=== PATIENT | female | born 1975 | race Caucasian/White ===

== ENCOUNTER 2016-08-25 23:13 | Inpatient (IN) | payer MEDICARE, MEDICAID, OTHER ==
[~2016-08-25] VITALS: Ht 170.2 cm; Wt 103.8 kg
[2016-08-25 23:21] VITALS: TEMP 97.7
[2016-08-25 23:31] VITALS: PULSE 91; RESP 18; O2SAT 97
[2016-08-25] MEDS ORDERED: DEPO104I SQ (23:39)
[2016-08-25] MEDS ORDERED: PAXI10TA2 PO (23:39)
[2016-08-25] MEDS: ACTIVATED CHARCOAL LIQUID 25 GM/120 ML BTL PO/NG ONE (23:45)
[2016-08-25] MEDS ORDERED: SODIUM CHLOR 0.9% 1000 ML INJ 1,000 ML IV ONE (23:45)
[2016-08-25 23:58] LABS: AUTOMATED NEUTROPHIL # 7.8 TH/MM3 (1.8-7.7); BASOPHIL # 0.1 TH/MM3 (0-0.2); BASOPHIL % 1.1 % (0.0-2.0); EOSINOPHIL # 0.1 TH/MM3 (0-0.4); EOSINOPHIL % 0.5 % (0.0-4.0); HEMATOCRIT 38.7 % (35.0-46.0); HEMO FLAGS DIFF FINAL; LYMPH % 28.5 % (9.0-44.0); LYMPHOCYTE # 3.6 TH/MM3 (1.0-4.8); MEAN CELL VOLUME 88.1 FL (80.0-100.0); MEAN CORPUSCULAR HEMOGLOBIN 30.6 PG (27.0-34.0); MEAN CORPUSCULAR HGB CONC 34.7 % (32.0-36.0); MONO % 7.6 % (0.0-8.0); NEUT % 62.3 % (16.0-70.0); PLATELET COUNT 262 TH/MM3 (150-450); RED CELL DISTRIBUTION WIDTH 13.1 % (11.6-17.2); WHITE BLOOD COUNT 12.5 TH/MM3 (4.0-11.0)
[2016-08-26] VITALS (8 sets, daily range): BP systolic 126–189; BP diastolic 75–101; PULSE 82–101; RESP 16–20; TEMP 98.4; O2SAT 93–99
[2016-08-26 00:14] LABS: ALT (GPT) 18 U/L (10-53); ANION GAP 13 MEQ/L (5-15); AST (GOT) 21 U/L (15-37); BICARBONATE 21.9 MEQ/L (21.0-32.0); BLOOD UREA NITROGEN 7 MG/DL (7-18); CHLORIDE 107 MEQ/L (98-107); GLOMERULAR FILTRATION RATE 73 ML/MIN (>89); POTASSIUM 3.2 MEQ/L (3.5-5.1); SODIUM (NA) 142 MEQ/L (136-145)
[2016-08-26 00:15] LABS: ALKALINE PHOSPHATASE 82 U/L (45-117); TOTAL BILIRUBIN ADULT 0.5 MG/DL (0.2-1.0)
[2016-08-26 00:18] LABS: ACETAMINOPHEN LESS THAN 2.0 MCG/ML (10.0-30.0)
[2016-08-26 00:31] LABS: AMPHETAMINE, URINE NEG (NEG); BARBITURATES, URINE NEG (NEG); COCAINE, URINE NEG (NEG)
[2016-08-26] MEDS ORDERED: POTASSIUM CHLORIDE 20 MEQ CONTROLLED RELEASE TAB PO ONE (01:00)
[2016-08-26] MEDS ORDERED: SODIUM CHLOR 0.9% 1000 ML INJ 1,000 ML IV ONE (01:00)
[2016-08-26] MEDS: ACTIVATED CHARCOAL LIQUID 25 GM/120 ML BTL PO/NG ONE (01:08)
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
[2016-08-26 03:47] LABS: APTT (PATIENT) 25.9 SEC (24.3-30.1); PROTHROMBIN TIME - PATIENT 11.5 SEC (9.8-11.6)
[2016-08-26] MEDS ORDERED: ONDANSETRON HCL 4 MG/2 ML VIAL IV PUSH ONE (07:00)
[2016-08-26 08:16] LABS: BICARBONATE 19.9 MEQ/L (21.0-32.0); POTASSIUM 3.7 MEQ/L (3.5-5.1)
--- NOTE | 2016-08-26 12:27 | EKG ---
Date Performed: 08/25/2016 Time Performed: 23:35:17 PTAGE: 41 years EKG: Sinus rhythm NORMAL ECG NO PREVIOUS TRACING DOCTOR: Rigo Cuevas Interpretating Date/Time 08/26/2016 12:25:16
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
[2016-08-26] MEDS ORDERED: cloNIDine HCL 0.1 MG TAB PO ONE (17:00)
[2016-08-26] MEDS ORDERED: ACETAMINOPHEN 325 MG TAB PO PRN (17:15)
[2016-08-26] MEDS ORDERED: ALUMINUM/MAGNESIUM/SIMETH 30 ML CUP PO PRN (17:15)
[2016-08-26] MEDS ORDERED: MAGNESIUM HYDROXIDE SUSP 30 ML CUP PO PRN (17:15)
[2016-08-27 05:29] VITALS: BP 142/74; PULSE 102; RESP 15; TEMP 98.6; O2SAT 95
[2016-08-27 07:50] LABS: ANION GAP 7 MEQ/L (5-15); BLOOD UREA NITROGEN 13 MG/DL (7-18); CHLORIDE 108 MEQ/L (98-107); GLOMERULAR FILTRATION RATE 45 ML/MIN (>89); HDL CHOLESTEROL 47.5 MG/DL (40.0-60.0); LDL CHOLESTEROL 63 MG/DL (0-99); POTASSIUM 3.8 MEQ/L (3.5-5.1); SODIUM (NA) 140 MEQ/L (136-145)
[2016-08-27] MEDS ORDERED: PARoxetine HCL 20 MG TAB PO SCH (09:00)
[2016-08-27] MEDS ORDERED: INFLUENZA VIRUS VACCINE (QUADRIVALENT) 0.5 ML SYR IM ONE (10:00)
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
[2016-08-27] MEDS: CITALOPRAM HYDROBROMIDE 20 MG TAB PO SCH (11:45)
[2016-08-27 19:15] VITALS: BP 122/69; PULSE 88; RESP 18; TEMP 98; O2SAT 97
[2016-08-27 20:33] LABS: C. DIFF EPI 027 PRESUMPTIVE NEGATIVE (NEGATIVE); C. DIFF TOXIN PCR NEGATIVE (NEGATIVE)
[2016-08-27] MEDS: QUEtiapine FUMARATE 100 MG TAB PO SCH (20:43)
[2016-08-28 05:46] VITALS: BP 122/78; PULSE 92; RESP 18; TEMP 98.1; O2SAT 98
[2016-08-28] MEDS: CITALOPRAM HYDROBROMIDE 20 MG TAB PO SCH (08:48)
--- NOTE | 2016-08-28 09:28 | HHI.PYPN ---
Subjective Remarks Patient was seen for reevaluation today's morning at bedside in her room in the med/psych unit, she was calm, cooperative and pleasant, she explains that she feels much better, her mood has improved,now is 5/10, compared with 2/10 yesterday, she says that the medication definitely help her to sleep better and relax, she says that she understands the importance of following directions , medical recommendations and continuing treatment and psychiatric follow-up as an outpatient. She is also physically better, her diarrhea now has remitted. She denies suicidal or homicidal ideation, she denies visual and auditory hallucination. She is fully oriented 3, no gross cognitive impairment observed. As per nursing staff she has been quite in the unit, compliant with medications, not aggressive behavior or agitation reported. Review of Systems Constitutional: DENIES: Diaphoretic episodes, Fatigue, Fever, Weight gain, Weight loss, Chills, Dizziness, Change in appetite, Night Sweats Endocrine: COMPLAINS OF: Abnorml menstrual pattern, Heat/cold intolerance, Polydipsia, Polyuria, Polyphagia Eyes: DENIES: Blurred vision, Diplopia, Eye inflammation, Eye pain, Vision loss , Photosensitivity, Double Vision Ears, nose, mouth, throat: DENIES: Tinnitus, Hearing loss, Vertigo, Nasal discharge, Oral lesions, Throat pain, Hoarseness, Ear Pain, Running Nose, Epistaxis, Sinus Pain, Toothache, Odynophagia Respiratory: DENIES: Apneas, Cough, Snoring, Wheezing, Hemoptysis, Sputum production, Shortness of breath Gastrointestinal: COMPLAINS OF: Diarrhea Genitourinary: DENIES: Abnormal vaginal bleeding, Dysmenorrhea, Dyspareunia, Sexual dysfunction, Urinary frequency, Urinary incontinence, Urgency, Hematuria , Dysuria, Nocturia, Vaginal discharge Musculoskeletal: DENIES: Joint pain, Muscle aches, Stiffness, Joint Swelling, Back pain, Neck pain Integumentary: DENIES: Abnormal pigmentation, Pruritus, Rash, Nail changes, Breast masses, Breast skin changes, Nipple discharge Hematologic/lymphatic: DENIES: Bruising, Lymphadenopathy Immunologic/allergic: DENIES: Eczema, Urticaria Neurologic: DENIES: Abnormal gait, Headache, Localized weakness, Paresthesias, Seizures, Speech Problems, Tremor, Poor Balance Psychiatric: COMPLAINS OF: Depression Objective Alert: Yes [place]: Person (ox4) Mood: Calm, Depressed Affect: Euthymic, Other Memory Intact: Immediate, Recent, Remote, Comment Hallucinations: Other (negative) Delusions: No Delusion Type: Other (none) Suicidal: Ideation (deneis at present) Homicidal: Ideation (negative) Insight/Judgement good Labs Test 08/27/16 17:05 Stool C. difficile Toxin (PCR) NEGATIVE Stl C. difficile Toxin PRESUMPTIVE Epiderm 027 NEGATIVE Vitals/IOs Vital Signs Date Time Temp Pulse Resp B/P Pulse Ox O2 Delivery O2 Flow Rate FiO2 08/28/16 05:46 98.1 92 18 122/78 98 08/26/16 19:17 Room Air Intake and Output 08/27/16 08/27/16 08/28/16 08:00 16:00 00:00 Intake Total 1060 ml Balance 1060 ml Assessment & Plan Problem List: (1) Adjustment disorder Assessment & Plan: Patient has shows positive response to psychotropics, we'll continue the process of psychiatric hospitalization for stabilization of depression and SI. No psychotropic changes today, television maintenance worker intervention to start to coordinate discharge planning. ICD Code: F43.20 Assessment & Plan Estimated LOS: days Justification for Cont. Inpt. Patient still needs psychiatric stabilization, she most probably decompensate out of the psychiatric unit. Request HC Surrog/Guard Advoc?: No Problem Qualifiers (1) Adjustment disorder: Qualified Code: F43.21 - Adjustment disorder with depressed mood José Smith MD Aug 28, 2016 09:28
--- NOTE | 2016-08-28 10:24 | PD.CONS ---
HPI Service [facility] Consult Requested By Psychiatry team Reason for Consult Medical management Primary Care Physician Mei Leon Diagnoses: History of Present Illness Patient is a 41-year-old female who came in to the hospital under Pascual act secondary to ingestion of more than 20 tablets of Motrin and other medications as a suicidal gesture. Patient admitted to medical psychiatry unit for further evaluation. Consulted for medical management. Patient seen today. States she has primary medical history of depression, colitis, C. difficile, HTN, recurrent UTI. States she doesn't remember all her medications but she no she is taking Toprol twice a day 50 mg dose. Reports [facility] as her regular pharmacy. She states she is feeling better. Denies pain and discomfort. Denies SOB/ dyspnea. Denies chest pain, palpitations, headaches, dizziness. Denies fevers, chills, n/v/d. Review of Systems Other Negative except for what is noted on history of present illness. Past Family Social History Allergies: Coded Allergies: Sulfa (Verified Allergy, Unknown, 08/25/16) Past Medical History Depression C. 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 Reported Medications Depo-SubQ Provera Inj (Medroxyprogesterone Inj) 104 Mg/0.65 Ml Inj 104 Mg SQ Q90D Paxil (Paroxetine HCl) 10 Mg Tab 10 Mg PO DAILY Toprol 50 mg twice a day Losartan/hydrochlorothiazide 50/12.5 mg daily Active Ordered Medications Current Medications Medications (Trade) Dose Ordered Sig/Smitha Route Start Time Stop Time Status Last Admin (Tylenol) 650 mg Q4H PRN PO 08/26/16 17:15 (CeleXA) 20 mg DAILY PO 08/27/16 11:45 08/28/16 08:48 (SEROquel) 100 mg HS PO 08/27/16 21:00 08/27/16 20:43 (Protonix) 40 mg DAILY PO 08/28/16 11:00 08/28/16 12:00 (Zofran Inj) 4 mg Q6H PRN IV 08/28/16 10:30 (Tums Chew) 1,000 mg TID PRN CHEW 08/28/16 10:30 (Lopressor) 50 mg Q12HR PO 08/28/16 11:00 08/28/16 12:01 Family History Mother of bladder cancer Father has eye cancer Social History Alcohol use occasional, last alcohol use prior to admission Denies tobacco use Denies illicit drug use Physical Exam Vital Signs Vital Signs Date Time Temp Pulse Resp B/P Pulse Ox O2 Delivery O2 Flow Rate FiO2 08/28/16 05:46 98.1 92 18 122/78 98 08/27/16 19:15 98.0 88 18 122/69 97 Physical Exam GENERAL: This is a well-nourished, well-developed patient, in no apparent distress. SKIN: No rashes, ecchymoses or lesions. Cool and dry. HEAD: Atraumatic. Normocephalic. No temporal or scalp tenderness. EYES: Pupils equal round and reactive. Extraocular motions intact. No scleral icterus. No injection or drainage. ENT: Nose without bleeding. Throat without erythema. Uvula midline. Airway patent. NECK: Trachea midline. No JVD or lymphadenopathy. Supple, nontender, no meningeal signs. CARDIOVASCULAR: Regular rate and rhythm without murmurs, gallops, or rubs. RESPIRATORY: Clear to auscultation. Breath sounds equal bilaterally. No wheezes , rales, or rhonchi. GASTROINTESTINAL: Abdomen soft, non-tender, nondistended. Bowel sounds active 4. MUSCULOSKELETAL: Extremities without clubbing, cyanosis, or edema. No joint tenderness, effusion, or edema noted. No calf tenderness. Negative Homans sign bilaterally. NEUROLOGICAL: Awake and alert. Motor and sensory grossly within normal limits. Normal speech. Laboratory Laboratory Tests Test 08/27/16 17:05 Stool C. difficile Toxin (PCR) NEGATIVE Stl C. difficile Toxin PRESUMPTIVE Epiderm 027 NEGATIVE Result Diagram: 08/25/16 2225 08/27/16 0648 Assessment and Plan Problem List: (1) Adjustment disorder ICD Code: F43.20 Status: Acute (2) MARLEN (acute kidney injury) ICD Code: N17.9 Status: Acute (3) HTN (hypertension) ICD Code: I10 Status: Chronic (4) Intentional ibuprofen overdose ICD Code: T39.312A Status: Acute Assessment and Plan Patient is a 41-year-old female came to the hospital under Pascual act secondary to ingestion of board and 20 tablets of Motrin and other medications secondary to suicide attempt. Admitted to medical psychiatry unit for further evaluation. Consulted for medical management. Adjustment disorder, depression, suicidal ideation - managed by psychiatry team HTN - restart home meds Toprol 25 mg twice a day, losartan/hydrochlorothiazide 50 mg/12.5 mg daily - Monitor BP trend Acute kidney injury - possibly related to ingestion of ibuprofen. Creatinine 1.31 - Repeat creatinine today 0.86. - Encourage by mouth fluid intake. Avoid nephrotoxins. Overdose, ingestion of ibuprofen - H&H 13.4/38.7 --> 13.1/37.8 - Stable H&H. Liver enzymes stable. - Start pantoprazole, calcium carbonate - Monitor for signs and symptoms of GI bleed Leukocytosis - initial WBC 12.5 - UA collected, negative - WBC today 8.9 Thank you for this consultation. We will follow patient with you. Stable to transfer to inpatient psychiatry unit. Written by Arslan Yeung, acting as scribe for Dr. Moreno on 08/28/16 at 10: 25. The documentation accurately reflects the work performed [id number] by me on at 21:40. Code Status Full code Discussed Condition With Patient, nursing, and Dr. Smith Problem Qualifiers (1) Adjustment disorder: Qualified Code: F43.21 - Adjustment disorder with depressed mood Arslan Fuller Aug 28, 2016 10:24 Reed Moreno MD Aug 28, 2016 21:40
[2016-08-28] MEDS ORDERED: CALCIUM CARBONATE 500 MG CHEWABLE TAB CHEW PRN (10:30)
[2016-08-28] MEDS ORDERED: ONDANSETRON HCL 4 MG/2 ML VIAL IV PRN (10:30)
[2016-08-28 11:30] VITALS: BP 140/83; PULSE 77
[2016-08-28] MEDS: PANTOPRAZOLE SOD 40 MG DELAYED RELEASE TAB PO SCH (12:00)
[2016-08-28] MEDS: METOPROLOL TARTRATE 50 MG TAB PO SCH ×2 (12:01→20:31)
[2016-08-28 12:21] LABS: AUTOMATED NEUTROPHIL # 7.4 TH/MM3 (1.8-7.7); BASOPHIL # 0.1 TH/MM3 (0-0.2); BASOPHIL % 0.7 % (0.0-2.0); EOSINOPHIL # 0.1 TH/MM3 (0-0.4); EOSINOPHIL % 1.3 % (0.0-4.0); HEMATOCRIT 37.8 % (35.0-46.0); HEMO FLAGS DIFF FINAL; LYMPH % 7.2 % (9.0-44.0); LYMPHOCYTE # 0.6 TH/MM3 (1.0-4.8); MEAN CELL VOLUME 87.9 FL (80.0-100.0); MEAN CORPUSCULAR HEMOGLOBIN 30.4 PG (27.0-34.0); MEAN CORPUSCULAR HGB CONC 34.6 % (32.0-36.0); MONO % 8.1 % (0.0-8.0); NEUT % 82.7 % (16.0-70.0); PLATELET COUNT 253 TH/MM3 (150-450); RED CELL DISTRIBUTION WIDTH 13.1 % (11.6-17.2); WHITE BLOOD COUNT 8.9 TH/MM3 (4.0-11.0)
[2016-08-28 12:22] LABS: BACTERIA, URINE FEW /hpf; BLOOD, URINE SMALL (NEG); GLUCOSE,URINE NEG (NEG); KETONE, URINE NEG (NEG); MUCUS URINE FEW /lpf (OCC); NITRITE,URINE NEG (NEG); SQUAMOUS EPITHELIAL CELL URINE 2 /hpf (0-5); URINE COLOR LIGHT-YELLOW (YELLW/STRAW)
[2016-08-28 12:23] LABS: COMMENT (UR) CULT NOT INDICATED; CULTURE IF INDICATED CULT NOT INDICATED
[2016-08-28 12:43] LABS: ALKALINE PHOSPHATASE 69 U/L (45-117); ALT (GPT) 13 U/L (10-53); ANION GAP 10 MEQ/L (5-15); AST (GOT) 11 U/L (15-37); BICARBONATE 25.2 MEQ/L (21.0-32.0); BLOOD UREA NITROGEN 12 MG/DL (7-18); CHLORIDE 104 MEQ/L (98-107); GLOMERULAR FILTRATION RATE 72 ML/MIN (>89); POTASSIUM 3.4 MEQ/L (3.5-5.1); SODIUM (NA) 139 MEQ/L (136-145); TOTAL BILIRUBIN ADULT 0.6 MG/DL (0.2-1.0)
[2016-08-28 13:09] LABS: HEMOGLOBIN A1a 1.1 %; HEMOGLOBIN A1b 0.9 %; HEMOGLOBIN Ao 86.4 %; HEMOGLOBIN LA1C 1.6 %; HEMOGLOBIN P3 3.3 %
[2016-08-28] MEDS ORDERED: POTASSIUM CHLORIDE 10 MEQ CONTROLLED RELEASE TAB PO ONE (13:45)
[2016-08-28] MEDS ORDERED: POTASSIUM CHLORIDE 20 MEQ CONTROLLED RELEASE TAB PO ONE (14:00)
[2016-08-28] MEDS: QUEtiapine FUMARATE 100 MG TAB PO SCH (20:31)
[2016-08-28 21:31] VITALS: BP 126/72; PULSE 73; RESP 18; TEMP 97.9; O2SAT 99
[2016-08-29 05:59] VITALS: BP 114/73; PULSE 76; RESP 18; TEMP 99.1; O2SAT 96
[2016-08-29] MEDS: PANTOPRAZOLE SOD 40 MG DELAYED RELEASE TAB PO SCH (09:13)
[2016-08-29] MEDS: METOPROLOL TARTRATE 50 MG TAB PO SCH ×2 (09:13→20:42)
[2016-08-29] MEDS: CITALOPRAM HYDROBROMIDE 20 MG TAB PO SCH (09:13)
--- NOTE | 2016-08-29 10:35 | HHI.PYPN ---
Subjective Remarks Patient was seen and discussed with the staff toxicologist. Patient claimed that she has been feeling much better. She denied any suicidal ideation intentions or plan. She slept fairly well. She is compliant in taking medication. No side effects were complained. Patient denied any auditory or visual hallucinations. No behavior or management problem reported. Feels hopeful about the future willing to continue to take medication and follow-up as an outpatient upon discharge continue with the same treatment Review of Systems Except as stated in HPI: all other systems reviewed are Neg Psychiatric: COMPLAINS OF: Mood changes, Depression Objective Alert: Yes [place]: Person (ox4) Mood: Calm, Depressed Affect: Euthymic Memory Intact: Immediate, Recent, Remote, Comment Hallucinations: Other (negative) Delusions: No Delusion Type: Other (none) Suicidal: Ideation (deneis at present) Homicidal: Ideation (negative) Insight/Judgement Fair to limited Labs Test 08/28/16 08/28/16 11:35 12:06 Urine Color LIGHT-YELLOW Urine Turbidity CLEAR Urine pH 6.0 Urine Specific [place] 1.008 Urine Protein NEG mg/dL Urine Glucose (UA) NEG mg/dL Urine Ketones NEG mg/dL Urine Occult Blood SMALL Urine Nitrite NEG Urine Bilirubin NEG Urine Urobilinogen LESS THAN 2.0 MG/DL Urine Leukocyte Esterase NEG Urine RBC LESS THAN 1 /hpf Urine WBC 4 /hpf Urine Squamous Epithelial 2 /hpf Cells Urine Bacteria FEW /hpf Urine Mucus FEW /lpf Microscopic Urinalysis Comment CULT NOT INDICATED White Blood Count 8.9 TH/MM3 Red Blood Count 4.30 MIL/MM3 Hemoglobin 13.1 GM/DL Hematocrit 37.8 % Mean Corpuscular Volume 87.9 FL Mean Corpuscular Hemoglobin 30.4 PG Mean Corpuscular Hemoglobin 34.6 % Concent Red Cell Distribution Width 13.1 % Platelet Count 253 TH/MM3 Mean Platelet Volume 7.8 FL Neutrophils (%) (Auto) 82.7 % Lymphocytes (%) (Auto) 7.2 % Monocytes (%) (Auto) 8.1 % Eosinophils (%) (Auto) 1.3 % Basophils (%) (Auto) 0.7 % Neutrophils # (Auto) 7.4 TH/MM3 Lymphocytes # (Auto) 0.6 TH/MM3 Monocytes # (Auto) 0.7 TH/MM3 Eosinophils # (Auto) 0.1 TH/MM3 Basophils # (Auto) 0.1 TH/MM3 CBC Comment DIFF FINAL Differential Comment Sodium Level 139 MEQ/L Potassium Level 3.4 MEQ/L Chloride Level 104 MEQ/L Carbon Dioxide Level 25.2 MEQ/L Anion Gap 10 MEQ/L Blood Urea Nitrogen 12 MG/DL Creatinine 0.86 MG/DL Estimat Glomerular Filtration 72 ML/MIN Rate Random Glucose 74 MG/DL Calcium Level 8.7 MG/DL Magnesium Level 2.0 MG/DL Total Bilirubin 0.6 MG/DL Aspartate Amino Transf 11 U/L (AST/SGOT) Alanine Aminotransferase 13 U/L (ALT/SGPT) Alkaline Phosphatase 69 U/L Total Protein 6.7 GM/DL Albumin 3.5 GM/DL Vitals/IOs Vital Signs Date Time Temp Pulse Resp B/P Pulse Ox O2 Delivery O2 Flow Rate FiO2 08/29/16 05:59 99.1 76 18 114/73 96 08/26/16 19:17 Room Air Intake and Output 08/28/16 08/28/16 08/29/16 08:00 16:00 00:00 Intake Total 360 ml 360 ml Balance 360 ml 360 ml Assessment & Plan Problem List: (1) Adjustment disorder ICD Code: F43.20 Assessment & Plan Estimated LOS: days Justification for Cont. Inpt. Risk of decompensation and safety Request HC Surrog/Guard Advoc?: No Problem Qualifiers (1) Adjustment disorder: Qualified Code: F43.21 - Adjustment disorder with depressed mood Jimy Lombardi MD Aug 29, 2016 10:35
--- NOTE | 2016-08-29 14:24 | HHI.PR ---
Subjective Remarks Follow-up visit excessive ingestion of ibuprofen, HTN, AK I. Patient seen today. Reports she is doing well. Denies any suicidal thoughts or harming herself. Denies pain and discomfort. Denies SOB/ dyspnea. Denies chest pain, palpitations, headaches, dizziness. Denies fevers, chills, n/v/d. Objective Vitals Vital Signs Date Time Temp Pulse Resp B/P Pulse Ox O2 Delivery O2 Flow Rate FiO2 08/29/16 05:59 99.1 76 18 114/73 96 08/28/16 21:31 97.9 73 18 126/72 99 I/O 08/28/16 08/28/16 08/28/16 08/29/16 08/29/16 08/29/16 07:00 15:00 23:00 07:00 15:00 23:00 Intake Total 360 ml 360 ml 240 ml Balance 360 ml 360 ml 240 ml Intake Oral 360 ml 360 ml 240 ml # Voids 2 Result Diagram: 08/28/16 1206 08/28/16 1206 Objective Remarks GENERAL: This is a well-nourished, well-developed patient, in no apparent distress. SKIN: No rashes, ecchymoses or lesions. Cool and dry. HEAD: Atraumatic. Normocephalic. No temporal or scalp tenderness. EYES: Pupils equal round and reactive. Extraocular motions intact. No scleral icterus. No injection or drainage. ENT: Nose without bleeding. Throat without erythema. Uvula midline. Airway patent. NECK: Trachea midline. No JVD or lymphadenopathy. Supple, nontender, no meningeal signs. CARDIOVASCULAR: Regular rate and rhythm without murmurs, gallops, or rubs. RESPIRATORY: Clear to auscultation. Breath sounds equal bilaterally. No wheezes , rales, or rhonchi. GASTROINTESTINAL: Abdomen soft, non-tender, nondistended. Bowel sounds active 4. MUSCULOSKELETAL: Extremities without clubbing, cyanosis, or edema. No joint tenderness, effusion, or edema noted. No calf tenderness. Negative Homans sign bilaterally. NEUROLOGICAL: Awake and alert. Motor and sensory grossly within normal limits. Normal speech. A/P Problem List: (1) Adjustment disorder ICD Code: F43.20 Status: Acute (2) MARLEN (acute kidney injury) ICD Code: N17.9 Status: Acute (3) HTN (hypertension) ICD Code: I10 Status: Chronic (4) Intentional ibuprofen overdose ICD Code: T39.312A Status: Acute Assessment and Plan Patient is a 41-year-old female came to the hospital under Pascual act secondary to ingestion of Motrin and other medications secondary to suicide attempt. Admitted to medical psychiatry unit for further evaluation. Consulted for medical management. Adjustment disorder, depression, suicidal ideation - managed by psychiatry team HTN - restart home meds Toprol 25 mg twice a day, - on losartan/hydrochlorothiazide 50 mg/12.5 mg daily as per [facility]. Reconcile meds. Restart once reconciled. - Monitor BP trend Acute kidney injury - possibly related to ingestion of ibuprofen. Creatinine 1.31 - Repeat creatinine today 0.86. - Encourage by mouth fluid intake. Avoid nephrotoxins. Overdose, ingestion of ibuprofen - H&H 13.4/38.7 --> 13.1/37.8 - Stable H&H. Liver enzymes stable. - Start pantoprazole, calcium carbonate - Monitor for signs and symptoms of GI bleed Leukocytosis - initial WBC 12.5 - UA collected, negative - WBC today 8.9 Discussed with patient, nursing. Stable from Hospitalist standpoint. We will sign off. Reconsult as needed. Written by Arslan Yeung, acting as scribe for Dr. Moreno on 08/29/16 at 14:23. The documentation accurately reflects the work performed [id number] by me on at 16:21. Problem Qualifiers (1) Adjustment disorder: Qualified Code: F43.21 - Adjustment disorder with depressed mood Arslan Fuller Aug 29, 2016 14:24 Reed Moreno MD Aug 29, 2016 16:21
[2016-08-29] MEDS: QUEtiapine FUMARATE 100 MG TAB PO SCH (20:42)
[2016-08-29 20:44] VITALS: BP 143/78; PULSE 82; RESP 18; TEMP 98.2; O2SAT 98
[2016-08-30 06:35] VITALS: BP 150/80; PULSE 88; RESP 18; TEMP 98.3; O2SAT 99
[2016-08-30] MEDS: CITALOPRAM HYDROBROMIDE 20 MG TAB PO SCH (08:31)
[2016-08-30] MEDS: METOPROLOL TARTRATE 50 MG TAB PO SCH (08:31)
[2016-08-30] MEDS: PANTOPRAZOLE SOD 40 MG DELAYED RELEASE TAB PO SCH (08:31)
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
[2016-08-30] MEDS ORDERED: CELE20TA PO (09:27)
[2016-08-30] MEDS ORDERED: QUET1TAB8 PO (09:27)
== END 2016-08-30 13:10 | disposition home or self-care (01) | DRG 882 ==
LOC: NEPC 23:13 → NEDA 08-26 17:35 → H260 08-26 21:05 → H4EA 08-27 12:20 → H260 08-28 18:09
PROVIDERS: ADMIT Psychiatry & Neurology Psychiatry; ATTEND Psychiatry & Neurology Psychiatry
DX: F43.20 Adjustment disorder, unspecified (principal); N17.9 Acute kidney failure, unspecified; I10 Essential (primary) hypertension; T39.311A Poisoning by propionic acid derivatives, accidental (unintentional), initial encounter; T39.391A Poisoning by other nonsteroidal anti-inflammatory drugs [NSAID], accidental (unintentional), initial encounter; D72.829 Elevated white blood cell count, unspecified; R19.7 Diarrhea, unspecified; Z23 Encounter for immunization
CPT/HCPCS: 80048; 80053; 80061; 80307; 80320; 80329; 81001; 83036; 83735; 85025; 85610; 85730; 87493; 90471; 90686; 93005; 96374; 96375; 96376; G0008; G0480; J2405; J7030; Q2038